=== PATIENT | male | born 1985 | race African-American/Black ===

== ENCOUNTER 2017-03-08 13:03 | Inpatient (IN) | payer OTHER ==
[2017-03-08 13:54] VITALS: BMI 30.7
[2017-03-08] MEDS ORDERED: METHADONE HCL 10 MG TABLET (FOR DETOX USE ONLY) PO ONE ×2 (16:37→23:00)
[2017-03-08] MEDS ORDERED: MAGNESIUM HYDROX 2400MG/30ML ORAL SUSPENSION 30 ML CUP PO PRN (16:37)
[2017-03-08] MEDS ORDERED: ACETAMINOPHEN 325 MG TABLET (FP) PO PRN (16:37)
[2017-03-08] MEDS ORDERED: LOPERAMIDE HCL 2 MG CAPSULE PO PRN (16:37)
[2017-03-08] MEDS ORDERED: NICOTINE POLACRILEX 4 MG GUM BC PRN (16:37)
[2017-03-08] MEDS ORDERED: MAGNESIUM CITRATE 300 ML BOTTLE PO PRN (16:37)
[2017-03-08] MEDS ORDERED: IBUPROFEN 400 MG TABLET (FP) PO PRN (16:37)
[2017-03-08] MEDS ORDERED: MAG HYDROX/AL HYDROX/SIMETH 30 ML UNIT-DOSE CUP PO PRN (16:37)
[2017-03-08] MEDS ORDERED: hydrOXYzine PAMOATE 50 MG CAPSULE (FP) PO PRN (16:37)
[2017-03-08] MEDS ORDERED: guaiFENesin/D-METHORPHAN HB 10 ML UNIT-DOSE CUPS PO PRN (16:37)
[2017-03-08] MEDS ORDERED: MENTHOL/PHENOL 1 EACH UD MM PRN (16:37)
[2017-03-08] MEDS ORDERED: P-EPHED 60MG/TRIPROLIDI 2.5MG TABLET PO PRN (16:37)
--- NOTE | 2017-03-08 16:44 | HP ---
COWS - Scale Resting Pulse: 0= [place] 80 or Below Sweatin=Flushed/Facial Moisture Restless Observation: 3= Extraneous Movement Pupil Size: 1= Pupils >than Normal Bone or Joint Aches: 2= Severe Diffuse Aches Runny Nose/ Eye Tearin= Runny Nose/Eyes GI Upset > 30mins: 3= Vomiting/Diarrhea Tremor Observation: 2= Slight Tremor Visible Yawning Observation: 2= >3x During Session Anxiety or Irritability: 2=Irritable/Anxious Goose Flesh Skin: 3=Piloerection COWS Score: 22 Admission [facility] Chief Complaint: heroin withdrawal sx Allergies/Adverse Reactions: Allergies Allergy/AdvReac Type Severity Reaction Status Date / Time No Known Allergies Allergy Verified 03/08/17 14:28 History of Present Illness: 31 yo m with h/o heroin use disorder, sniffing 3 bundles daily, last used yesterday lives in the [place], wants to stop using reporting heroin/opioid withdrawal sx, nausea, vomiting, diarrhea, chills, body aches, no h/o seziures, no DTs, denies cocaine and alochol use, smokes 1 PPD. no h/o suicide attempts no SI at this time. Never been in treatment before. no /o OD. Exam Limitations: No Limitations - Ebola screening Have you traveled outside of the country in the last 21 days: No Have you had contact with anyone from an Ebola affected area: No Have you been sick,other than usual withdrawal symptoms: No Do you have a fever: No - Review of Systems Constitutional: Chills, Diaphoresis, Loss of Appetite, Malaise, Night Sweats, Changes in sleep, Unintentional Wgt. Loss EENT: reports: Nose Congestion Respiratory: reports: No Symptoms reported Cardiac: reports: No Symptoms Reported GI: reports: Diarrhea, Nausea, Poor Appetite, Poor Fluid Intake, Vomiting, Abdominal cramping : reports: No Symptoms Reported Musculoskeletal: reports: Back Pain, Joint Pain, Muscle Pain, Neck Pain Integumentary: reports: Flushing, Sweating Neuro: reports: Headache, Tremors, Weakness Endocrine: reports: No Symptoms Reported Hematology: reports: No Symptoms Reported Psychiatric: reports: Judgement Intact, Mood/Affect Appropiate, Orientated x3, Anxious, Depressed Other Systems: Reviewed and Negative Patient History - Patient Medical History Hx Anemia: No Hx Asthma: No Hx Chronic Obstructive Pulmonary Disease (COPD): No Hx Cancer: No Hx Cardiac Disorders: No Hx Congestive Heart Failure: No Hx Hypertension: No Hx Hypercholesterolemia: No Hx Pacemaker: No HX Cerebrovascular Accident: No Hx Seizures: No Hx Dementia: No Hx Diabetes: No Hx Gastrointestinal Disorders: No Hx Liver Disease: No Hx Genitourinary Disorders: No Hx Sexually Transmitted Disorders: No Hx Renal Disease (ESRD): No Hx Thyroid Disease: No Hx Human Immunodeficiency Virus (HIV): No Hx Hepatitis C: No Hx Depression: Yes Hx Suicide Attempt: No Hx Bipolar Disorder: No Hx Schizophrenia: No Other Medical History: anxiety and insomnia - Patient Surgical History Past Surgical History: No Anesthesia Reaction: No - PPD History Previous Implant?: Yes Documented Results: Negative w/o proof Implanted On Prior [facility] Admission?: No PPD to be Administered?: Yes - Reproductive History Patient is a Female of Child Bearing Age (11 -55 yrs old): No Patient : No - Smoking Cessation Smoking history: Current every day smoker Aproximately how many cigarettes per day: 20 Hx Chewing Tobacco Use: No Initiated information on smoking cessation: Yes 'Breaking Loose' booklet given: 03/08/17 - Substance & Tx. History Hx Alcohol Use: No Hx Substance Use: Yes Substance Use Type: Heroin Hx Substance Use Treatment: No (first admission for detox) - Substances Abused Heroin Route: Inhalation Frequency: Daily Amount used: 30 bags Age of first use: 29 Date of Last Use: 03/07/17 Family Disease History - Family Disease History Family History: Denies Other Family History: aunt and uncle use heroin and alcohol Admission Physical Exam BHS - Vital Signs Vital Signs: Vital Signs - 24 hr 03/08/17 13:18 Temperature 98.1 F Pulse Rate 66 Respiratory 18 Rate Blood Pressure 160/70 - Physical General Appearance: Yes: Nourished, Appropriately Dressed, Disheveled, Mild Distress, Tremorous, Irritable, Sweating, Anxious HEENTM: Yes: EOMI, Hearing grossly Normal, Normocephalic, Normal Voice, ELLE, Pharynx Normal, Nasal Congestion, Rhinorrhea Respiratory: Yes: Within Normal Limits, Chest Non-Tender, Lungs Clear, Normal Breath Sounds, No Respiratory Distress, No Accessory Muscle Use Neck: Yes: Within Normal Limits, No masses,lesions,Nodules, Supple, Trachea in good position Breast: Yes: Breast Exam Deferred Cardiology: Yes: Within Normal Limits, Regular Rhythm, Regular Rate, S1, S2 Abdominal: Yes: Within Normal Limits, Normal Bowel Sounds, Non Tender, Flat, Soft Genitourinary: Yes: Within Normal Limits Back: Yes: Within Normal Limits Musculoskeletal: Yes: Back pain Extremities: Yes: Normal Capillary Refill, Non-Tender, Tremors Neurological: Yes: loom overhauler II-XII NML intact, Fully Oriented, Alert, Motor Strength 5/5, Normal Response, Depressed Affect Integumentary: Yes: Normal Color, Warm, Diaphoresis, Moist, Other (poor skin tugor) Lymphatic: Yes: Within Normal Limits - Addiitonal Findings: withdrawal sx and dehydration - Diagnostic (1) Nicotine dependence Status: Acute (2) Opioid dependence with withdrawal Status: Acute Cleared for Admission [facility] - Detox or Rehab [facility] Level of Care: Medically Managed Detox Regimen/Protocol: Methadone [facility] Breath Alcohol Content Breath Alcohol Content: 0 Urine Drug Screen - Results Drug Screen Negative: No Urine Drug Screen Results: YUMIKO-Cocaine, OPI-Opiates
[2017-03-08] MEDS ORDERED: NICOTINE 21 MG/24 HOURS TOPICAL PATCH TD SCH (17:00)
[2017-03-08] MEDS: diazePAM 5 MG TABLET PO PRN ×2 (17:37→22:10)
[2017-03-08 20:52] LABS: URINE APPEARANCE SLCLOUDY; URINE BILIRUBIN NEGATIVE (NEGATIVE); URINE BLOOD NEGATIVE (NEGATIVE); URINE COLOR DKYELLOW; URINE GLUCOSE (UA) NEGATIVE (NEGATIVE); URINE KETONE TRACE (NEGATIVE); URINE NITRITE NEGATIVE (NEGATIVE); URINE PROTEIN NEGATIVE (NEGATIVE); URINE UROBILINOGEN NEGATIVE mg/dL (0.2-1.0)
[2017-03-08] MEDS ORDERED: THIAMINE HCL 100 MG TABLET (FP) PO SCH (22:00)
[2017-03-09 06:25] VITALS: BP 112/64; PULSE 56; TEMP 97.5
--- NOTE | 2017-03-09 06:39 | PN ---
S Progress Note Note: patient did not want to complete treatment,stated has emergency family problem, did not want to wait,signed release ama
--- NOTE | 2017-03-09 06:42 | DS ---
[facility] Detox Discharge Summary Admission Date: 03/08/17 Discharge Date: 03/09/17 - History Present History: Opioid Dependence Additional Comments: patient did not want to complete treatment due to emergency family problem,did not want to wait,signed release ama Pertinent Past History: nicotine dependence - Physical Exam Results Vital Signs: Vital Signs Temperature 97.5 F L 03/09/17 06:24 Pulse Rate 56 L 03/09/17 06:24 Respiratory Rate 18 03/09/17 06:24 Blood Pressure 112/64 03/09/17 06:24 O2 Sat by Pulse Oximetry (%) Pertinent Admission Physical Exam Findings: withdrawal symptom - Medication Discharge Medications: Ambulatory Orders NK [No Known Home Medication] 03/08/17 - Diagnosis (1) Opioid dependence with withdrawal Current Visit: Yes Status: Acute (2) Nicotine dependence Current Visit: Yes Status: Acute - AMA Did Patient Leave Against Medical Advice: Yes
[2017-03-09] MEDS ORDERED: METHADONE HCL 10 MG TABLET (FOR DETOX USE ONLY) PO ONE (10:00)
[2017-03-09] MEDS ORDERED: PRENATAL VITAMINS W/ FOLIC ACID TABLET (FP) PO SCH (10:00)
[2017-03-09 10:41] LABS: MCH 28.9 pg (25.7-33.7); MCHC 33.4 g/dl (32.0-35.9); MEAN CELL VOLUME 86.6 fl (80-96); MEAN PLT VOLUME 9.6 fl (7.5-11.1); PLATELET COUNT 235 K/MM3 (134-434); RDW 13.6 % (11.9-15.9); WHITE BLOOD COUNT 6.4 K/mm3 (4.0-10.0)
[2017-03-09 10:54] LABS: ALBUMIN 4.2 g/dl (3.4-5.0); ANION GAP 10 (8-16); CALCIUM 10.1 mg/dL (8.5-10.1); CO2 29 mmol/L (21-32); GLUCOSE,RANDOM 89 mg/dL (74-106); SGOT/AST 12 U/L (15-37); SGPT/ALT 22 U/L (12-78)
[2017-03-09 10:59] LABS: ALK PHOS 90 U/L (45-117); BILIRUBIN,TOTAL 0.6 mg/dL (0.2-1.0); TOT PROT 7.6 g/dl (6.4-8.2)
[2017-03-09 12:32] LABS: SICKLE CELL SCREEN NEGATIVE (NEGATIVE)
[2017-03-09 14:27] LABS: HIV 1 & 2 AB NEGATIVE; HIV 1 AGp24 NEGATIVE
[2017-03-09 16:02] LABS: URINE LEUK ESTERASE Negative (NEGATIVE)
[2017-03-10] MEDS ORDERED: METHADONE HCL 5 MG TABLET (FOR DETOX USE ONLY) PO ONE (10:00)
--- NOTE | 2017-03-11 09:42 | EKG ---
Test Reason : Blood Pressure : / mmHG Vent. Rate : 071 BPM Atrial Rate : 071 BPM P-R Int : 158 ms QRS Dur : 106 ms QT Int : 416 ms P-R-T Axes : 052 061 042 degrees QTc Int : 452 ms NORMAL SINUS RHYTHM NORMAL ECG NO PREVIOUS ECGS AVAILABLE Confirmed by KASHMIR CANALES, ESTEFANI ([id number]) on 03/11/2017 9:41:51 AM Referred By: Confirmed By:ESTEFANI MARLOW MD
[2017-03-11] MEDS ORDERED: METHADONE HCL 5 MG TABLET (FOR DETOX USE ONLY) PO ONE (10:00)
[2017-03-12] MEDS ORDERED: METHADONE HCL 10 MG TABLET (FOR DETOX USE ONLY) PO ONE (10:00)
[2017-03-13] MEDS ORDERED: METHADONE HCL 5 MG TABLET (FOR DETOX USE ONLY) PO ONE (06:00)
== END 2017-03-09 06:40 | disposition left against medical advice (07) | DRG 770 ==
LOC: YASAS 13:03 → Y3N 16:00
PROVIDERS: ADMIT Internal Medicine; ATTEND Internal Medicine
PROC: HZ2ZZZZ Detoxification Services for Substance Abuse Treatment (ICD-10-PCS; principal; 2017-03-08)
DX: F11.23 Opioid dependence with withdrawal (principal); F17.210 Nicotine dependence, cigarettes, uncomplicated; F41.8 Other specified anxiety disorders; G47.00 Insomnia, unspecified
CPT/HCPCS: 36415; 80053; 81003; 85027; 85660; 86593; 87389; 93005; 93010

== ENCOUNTER 2019-12-30 11:50 | Inpatient (IN) | payer OTHER ==
--- NOTE | 2019-12-30 12:11 | BHS.RME ---
Substance Use & Tx History - Substance Use History Alcohol Substance amount: 1 pint vodka Frequency of use: Less than 3 times per week Substance route: Oral Date of Last Use: 12/28/19 Heroin Substance amount: 4 bags Frequency of use: Daily Substance route: Inhalation (ex: sniffing or snorting) Date of Last Use: 12/29/19 Marijuana/Hashish Substance amount: 1 joint Frequency of use: Daily Substance route: Smoking Date of Last Use: 12/29/19 Nicotine Substance amount: 1/2 pack Frequency of use: Daily Substance route: Smoking Date of Last Use: 12/30/19 Physical/Psych/Mental Status - Behavior General Behavior: Increased activity (restlessness, agitation) Eye Contact: Normal - Cooperativeness Cooperativeness: Cooperative - Thinking Thought Processes: Tight, Logical, Goal Directed - Physical Health Problems Is patient presently having any pain?: No Does patient presently have any injuries (include location): No Does patient currently have a fever: No Is patient : No COWS - Scale Resting Pulse: 0= [place] 80 or Below Sweatin= Chills/Flushing Restless Observation: 1= Difficult to Sit Still Pupil Size: 1= Pupils >than Normal Bone or Joint Aches: 2= Severe Diffuse Aches Runny Nose/ Eye Tearin= Runny Nose/Eyes GI Upset > 30mins: 1= Stomach Cramp Tremor Observation: 1= Tremor [place], Not Seen Yawning Observation: 0= None Anxiety or Irritability: 1=Feels Anxious/Irritable Goose Flesh Skin: 3=Piloerection COWS Score: 13 CIWA Nausea/Vomitin-No Nausea/No Vomiting Muscle Tremors: 3 Anxiety: 3 Agitation: 3 Paroxysmal Sweats: 4-Forehead w/Sweat Beads Orientation: 0-Oriented Tacttile Disturbances: 0-None Auditory Disturbances: 0-None Visual Disturbances: 0-None Headache: 0-None Present CIWA-Ar Total Score: 13
--- NOTE | 2019-12-30 13:19 | HP ---
COWS - Scale Resting Pulse: 0= [place] 80 or Below Sweatin= Chills/Flushing Restless Observation: 1= Difficult to Sit Still Pupil Size: 1= Pupils >than Normal Bone or Joint Aches: 2= Severe Diffuse Aches Runny Nose/ Eye Tearin= Runny Nose/Eyes GI Upset > 30mins: 1= Stomach Cramp Tremor Observation: 1= Tremor [place], Not Seen Yawning Observation: 0= None Anxiety or Irritability: 1=Feels Anxious/Irritable Goose Flesh Skin: 3=Piloerection COWS Score: 13 CIWA Score Nausea/Vomitin-No Nausea/No Vomiting Muscle Tremors: 3 Anxiety: 3 Agitation: 3 Paroxysmal Sweats: 4-Forehead w/Sweat Beads Orientation: 0-Oriented Tacttile Disturbances: 0-None Auditory Disturbances: 0-None Visual Disturbances: 0-None Headache: 0-None Present CIWA-Ar Total Score: 13 - Admission Criteria [facility] Guidelines: Admission for Medically Managed Detox: Requires at least one of the followin. CIWA greater than 12 2. Seizures within the past 24 hours 3. Delirium tremens within the past 24 hours 4. Hallucinations within the past 24 hours 5. Acute intervention needed for co occurring medical disorder 6. Acute intervention needed for co occurring psychiatric disorder 7. Severe withdrawal that cannot be handled at a lower level of care (continued vomiting, continued diarrhea, abnormal vital signs) requiring intravenous medication and/or fluids 8. Admitting History and Physical - Admission Chief Complaint: Mr. Lew presents to [facility] stating he is here "to get clean". He requests admission to detox for alcohol and heroin use. History of Present Illness: Mr. Lew presents to [facility] stating he is here "to get clean". He requests admission to detox for alcohol and heroin use. He was last here for a 2 day detox in 2017. PMH: eczema PSH/Psych/Legal: none SOC: homeless, with friends Substance Use History Alcohol Substance amount: 1 pint vodka Frequency of use: Less than 3 times per week Substance route: Oral Date of Last Use: 12/28/19 Began age 10 y. No deizures, no blackouts, no eyeopener Heroin Substance amount: 4 bags Frequency of use: Daily Substance route: Inhalation (ex: sniffing or snorting) Date of Last Use: 12/29/19 Began at age 29 y No OD No Narcan at home Marijuana/Hashish Substance amount: 1 joint Frequency of use: Daily Substance route: Smoking Date of Last Use: 12/29/19 Began age 9 y Nicotine Substance amount: 1/2 pack Frequency of use: Daily Substance route: Smoking Date of Last Use: 12/30/19 Began age 8 yo Ben[place]: denies Methadone: buys on street History Source: Patient Limitations to Obtaining History: No Limitations - Smoking History Smoking history: Current every day smoker Have you smoked in the past 12 months: Yes Aproximately how many cigarettes per day: 20 - Alcohol/Substance Use Hx Alcohol Use: No - Social History Usual Living Arrangement: Yes: Other (homeless, with friends) Admission [facility] Allergies/Adverse Reactions: Allergies Allergy/AdvReac Type Severity Reaction Status Date / Time No Known Allergies Allergy Verified 03/08/17 14:28 Exam Limitations: No Limitations - Ebola screening Have you traveled outside of the country in the last 21 days: No Have you been sick,other than usual withdrawal symptoms: No Do you have a fever: No - Review of Systems Constitutional: No Symptoms Reported EENT: reports: Nose Congestion Respiratory: reports: No Symptoms reported Cardiac: reports: No Symptoms Reported GI: reports: Nausea : reports: No Symptoms Reported Musculoskeletal: reports: Back Pain Integumentary: reports: No Symptoms Reported Neuro: reports: Tremors Hematology: reports: No Symptoms Reported Psychiatric: reports: Anxious Patient History - Patient Medical History Hx Anemia: No Hx Asthma: No Hx Chronic Obstructive Pulmonary Disease (COPD): No Hx Cancer: No Hx Cardiac Disorders: No Hx Congestive Heart Failure: No Hx Hypertension: No Hx Hypercholesterolemia: No Hx Pacemaker: No HX Cerebrovascular Accident: No Hx Seizures: No Hx Dementia: No Hx Diabetes: No Hx Gastrointestinal Disorders: No Hx Liver Disease: No Hx Genitourinary Disorders: No Hx Sexually Transmitted Disorders: No Hx Renal Disease (ESRD): No Hx Thyroid Disease: No Hx Human Immunodeficiency Virus (HIV): No Hx Hepatitis C: No Hx Depression: Yes Hx Suicide Attempt: No Hx Bipolar Disorder: No Hx Schizophrenia: No - Patient Surgical History Past Surgical History: No Anesthesia Reaction: No - Smoking Cessation Smoking history: Current every day smoker Aproximately how many cigarettes per day: 10 Hx Chewing Tobacco Use: No Initiated information on smoking cessation: Yes 'Breaking Loose' booklet given: 12/30/19 Admission Physical Exam [facility] - Physical General Appearance: Yes: No Apparent Distress, Nourished, Appropriately Dressed HEENTM: Yes: EOMI, Hearing grossly Normal, Normocephalic, Normal Voice Respiratory: Yes: Lungs Clear, No Respiratory Distress, No Accessory Muscle Use Neck: Yes: Within Normal Limits, Supple Breast: Yes: Breast Exam Deferred Cardiology: Yes: Regular Rhythm, Regular Rate, S1, S2 Abdominal: Yes: Normal Bowel Sounds, Non Tender, Flat, Soft Genitourinary: Yes: Other (deferred) Back: Yes: Normal Inspection Musculoskeletal: Yes: full range of Motion Extremities: Yes: Normal Inspection, Non-Tender Neurological: Yes: Alert, Normal Response Integumentary: Yes: Within Normal Limits - Diagnostic (1) Alcohol dependence with withdrawal, uncomplicated Current Visit: Yes Status: Acute (2) Cannabis abuse Current Visit: Yes Status: Acute (3) Nicotine dependence Current Visit: Yes Status: Acute Qualifiers: Nicotine product type: cigarettes Substance use status: uncomplicated Qualified Code(s): F17.210 - Nicotine dependence, cigarettes, uncomplicated (4) Opioid dependence with withdrawal Current Visit: Yes Status: Acute Cleared for Admission [facility] - Detox or Rehab [facility] Level of Care: Medically Managed Detox Regimen/Protocol: Methadone/Librium Breathalyzer - Breathalyzer Breathalyzer: 0 Urine Drug Screen - Test Device Lot number: [id number] Expiration date: 07/28/21 - Control Is test valid?: Yes - Results Drug screen NEGATIVE: No Urine drug screen results: THC-Marijuana, FEN-Fentanyl, MOP-Opiates, MTD- Methadone, BZO-Benzodiazepines Inpatient Rehab Admission - Rehab Decision to Admit Inpatient rehab admission?: No
[2019-12-30] MEDS ORDERED: MENTHOL/PHENOL 1 EACH UD MM PRN (13:20)
[2019-12-30] MEDS ORDERED: MAGNESIUM HYDROX 2400MG/30ML ORAL SUSPENSION 30 ML CUP PO PRN (13:20)
[2019-12-30] MEDS ORDERED: BISMUTH SUBSALICYLATE 524 MG/30 ML UD PO PRN (13:20)
[2019-12-30] MEDS ORDERED: NICOTINE POLACRILEX 2 MG GUM BUC PRN (13:20)
[2019-12-30] MEDS ORDERED: METHOCARBAMOL 500 MG TABLET PO PRN (13:20)
[2019-12-30] MEDS ORDERED: ONDANSETRON *ODT* 4 MG TABLET SL PRN (13:20)
[2019-12-30] MEDS ORDERED: MAGNESIUM CITRATE 300 ML BOTTLE PO PRN (13:20)
[2019-12-30] MEDS ORDERED: chlordiazePOXIDE HCL 25 MG CAPSULE PO PRN (13:20)
[2019-12-30] MEDS ORDERED: ACETAMINOPHEN 325 MG TABLET (FP) PO PRN ×2 (13:20)
[2019-12-30] MEDS ORDERED: IBUPROFEN 400 MG TABLET (FP) PO PRN (13:20)
[2019-12-30] MEDS ORDERED: MAG HYDROX/AL HYDROX/SIMETH 30 ML UNIT-DOSE CUP PO PRN (13:20)
[2019-12-30] MEDS ORDERED: METHADONE HCL 10 MG TABLET (FOR DETOX USE ONLY) PO ONE (14:00)
[2019-12-30 14:26] VITALS: BMI 28.7
[2019-12-30] MEDS: NICOTINE 14 MG/24 HOURS TOPICAL PATCH TD SCH (15:45)
[2019-12-30] MEDS: hydrOXYzine PAMOATE 25 MG CAPSULE (FP) PO SCH ×3 (15:45→22:33)
[2019-12-30 17:41] LABS: HEMATOCRIT 35.7 % (35.4-49); HEMOGLOBIN 11.8 GM/dL (11.7-16.9); MCH 29.4 pg (25.7-33.7); MCHC 33.1 g/dl (32.0-35.9); MEAN CELL VOLUME 88.8 fl (80-96); MEAN PLT VOLUME 10.5 fl (7.5-11.1); RBC 4.03 M/mm3 (4.00-5.60); RDW 12.4 % (11.9-15.9); WHITE BLOOD COUNT 4.1 K/mm3 (4.0-10.0)
[2019-12-30 17:52] LABS: ALBUMIN 3.6 g/dl (3.4-5.0); BILIRUBIN,TOTAL 0.4 mg/dL (0.2-1); BLOOD UREA NITROGEN 8.1 mg/dL (7-18); CALCIUM 8.8 mg/dL (8.5-10.1); CREATININE 0.8 mg/dL (0.55-1.3); POTASSIUM 3.6 mmol/L (3.5-5.1); TOT PROT 6.6 g/dl (6.4-8.2)
[2019-12-30 17:56] LABS: PLATELET COUNT 180 K/MM3 (134-434)
[2019-12-30] MEDS: chlordiazePOXIDE HCL 25 MG CAPSULE PO SCH ×2 (18:02→22:33)
[2019-12-30] MEDS: MELATONIN 5 MG TABLETS PO SCH (22:32)
[2019-12-30] MEDS: THIAMINE HCL 100 MG TABLET (FP) PO SCH (22:33)
[2019-12-31] MEDS: chlordiazePOXIDE HCL 25 MG CAPSULE PO SCH ×4 (06:18→22:26)
[2019-12-31] MEDS: hydrOXYzine PAMOATE 25 MG CAPSULE (FP) PO SCH ×5 (06:18→22:26)
[2019-12-31] MEDS ORDERED: METHADONE HCL 5 MG TABLET (FOR DETOX USE ONLY) ONE (09:06)
[2019-12-31] MEDS ORDERED: METHADONE HCL 10 MG TABLET (FOR DETOX USE ONLY) ONE (09:06)
[2019-12-31] MEDS ORDERED: METHADONE (DETOX) 20 MG, METHADONE (DETOX) 5 MG PO ONE (10:00)
[2019-12-31] MEDS: PRENATAL VITAMINS W/ FOLIC ACID TABLET (FP) PO SCH (10:38)
[2019-12-31] MEDS: NICOTINE 14 MG/24 HOURS TOPICAL PATCH TD SCH (10:39)
--- NOTE | 2019-12-31 12:47 | PN ---
S CIWA - CIWA Score Nausea/Vomitin-Mild Nausea/No Vomiting Muscle Tremors: 2 Anxiety: 2 Agitation: 2 Paroxysmal Sweats: 1-Minimal Palms Moist Orientation: 0-Oriented Tacttile Disturbances: 1-Very Mild Itch/Numbness Auditory Disturbances: 0-None Visual Disturbances: 0-None Headache: 2-Mild CIWA-Ar Total Score: 11 [facility] COWS - Scale Resting Pulse: 0= [place] 80 or Below Sweatin= No chills or Flushing Restless Observation: 0= Sits Still Pupil Size: 1= Pupils >than Normal Bone or Joint Aches: 2= Severe Diffuse Aches Runny Nose/ Eye Tearin= Runny Nose/Eyes GI Upset > 30mins: 2= Nausea/Diarrhea Tremor Observation of Outstretched Hands: 2= Slight Tremor Visible Yawning Observation: 1= 1-2x During Session Anxiety or Irritability: 2=Irritable/Anxious Goose Flesh Skin: 0=Smooth Skin COWS Score: 12 [facility] Progress Note (SOAP) Subjective: alert,irritable,anxious,interrupted sleep,tremor,aching pain body and back,nausea Objective: 12/31/19 12:45 Vital Signs Temperature 97.8 F 12/31/19 08:46 Pulse Rate 54 L 12/31/19 08:46 Respiratory Rate 16 12/31/19 08:46 Blood Pressure 133/79 12/31/19 08:46 O2 Sat by Pulse Oximetry (%) 99 12/31/19 06:20 Laboratory Last Values WBC 4.1 K/mm3 (4.0-10.0) 12/30/19 12:50 RBC 4.03 M/mm3 (4.00-5.60) 12/30/19 12:50 Hgb 11.8 GM/dL (11.7-16.9) 12/30/19 12:50 Hct 35.7 % (35.4-49) D 12/30/19 12:50 MCV 88.8 fl (80-96) 12/30/19 12:50 MCH 29.4 pg (25.7-33.7) 12/30/19 12:50 MCHC 33.1 g/dl (32.0-35.9) 12/30/19 12:50 RDW 12.4 % (11.9-15.9) 12/30/19 12:50 Plt Count 180 K/MM3 (134-434) D 12/30/19 12:50 MPV 10.5 fl (7.5-11.1) 12/30/19 12:50 Sodium 142 mmol/L (136-145) 12/30/19 12:50 Potassium 3.6 mmol/L (3.5-5.1) 12/30/19 12:50 Chloride 104 mmol/L (98-107) 12/30/19 12:50 Carbon Dioxide 32 mmol/L (21-32) 12/30/19 12:50 Anion Gap 7 MMOL/L (8-16) L 12/30/19 12:50 BUN 8.1 mg/dL (7-18) 12/30/19 12:50 Creatinine 0.8 mg/dL (0.55-1.3) 12/30/19 12:50 Est GFR (CKD-EPI)AfAm 134.14 12/30/19 12:50 Est GFR (CKD-EPI)NonAf 115.74 12/30/19 12:50 Random Glucose 74 mg/dL (74-106) 12/30/19 12:50 Calcium 8.8 mg/dL (8.5-10.1) 12/30/19 12:50 Total Bilirubin 0.4 mg/dL (0.2-1) 12/30/19 12:50 AST 16 U/L (15-37) 12/30/19 12:50 ALT 22 U/L (13-61) 12/30/19 12:50 Alkaline Phosphatase 73 U/L (45-117) 12/30/19 12:50 Total Protein 6.6 g/dl (6.4-8.2) 12/30/19 12:50 Albumin 3.6 g/dl (3.4-5.0) 12/30/19 12:50 Syphilis Serology Non-reactive (NONREACTIVE) 12/30/19 12:50 Assessment: 12/31/19 12:46 withdrawal symptom Plan: continue detox methadone and librium regimen,fluid
[2019-12-31] MEDS: VITAMINS A AND D TOPICAL OINTMENT 60 GM TUBE TP SCH ×2 (17:36→23:16)
[2019-12-31] MEDS: cloNIDine HCL 0.1 MG TABLET PO PRN (18:53)
[2019-12-31] MEDS: THIAMINE HCL 100 MG TABLET (FP) PO SCH (22:26)
[2019-12-31] MEDS: MELATONIN 5 MG TABLETS PO SCH (22:26)
[2020-01-01] MEDS: chlordiazePOXIDE HCL 25 MG CAPSULE PO SCH ×2 (08:14→10:17)
[2020-01-01] MEDS: hydrOXYzine PAMOATE 25 MG CAPSULE (FP) PO SCH ×3 (08:14→14:17)
[2020-01-01] MEDS: VITAMINS A AND D TOPICAL OINTMENT 60 GM TUBE TP SCH ×2 (08:15→12:17)
[2020-01-01] MEDS ORDERED: METHADONE HCL 10 MG TABLET (FOR DETOX USE ONLY) PO ONE (10:00)
[2020-01-01] MEDS: NICOTINE 14 MG/24 HOURS TOPICAL PATCH TD SCH (10:17)
[2020-01-01] MEDS: PRENATAL VITAMINS W/ FOLIC ACID TABLET (FP) PO SCH (10:17)
[2020-01-01 13:52] VITALS: BP 122/76; PULSE 49; TEMP 97.3
[2020-01-01] MEDS: cloNIDine HCL 0.1 MG TABLET PO PRN (14:14)
--- NOTE | 2020-01-01 14:59 | PN ---
[facility] CIWA - CIWA Score Nausea/Vomitin-Mild Nausea/No Vomiting Muscle Tremors: 2 Anxiety: 2 Agitation: 2 Paroxysmal Sweats: No Perspiration Orientation: 0-Oriented Tacttile Disturbances: 1-Very Mild Itch/Numbness Auditory Disturbances: 0-None Visual Disturbances: 0-None Headache: 1-Very Mild CIWA-Ar Total Score: 9 [facility] COWS - Scale Resting Pulse: 0= [place] 80 or Below Sweatin= No chills or Flushing Restless Observation: 0= Sits Still Pupil Size: 1= Pupils >than Normal Bone or Joint Aches: 2= Severe Diffuse Aches Runny Nose/ Eye Tearin= Nasal Congestion GI Upset > 30mins: 1= Stomach Cramp Tremor Observation of Outstretched Hands: 2= Slight Tremor Visible Yawning Observation: 1= 1-2x During Session Anxiety or Irritability: 2=Irritable/Anxious Goose Flesh Skin: 0=Smooth Skin COWS Score: 10 [facility] Progress Note (SOAP) Subjective: alert,irritable,anxious,interrupted sleep,tremor,nausea Objective: 01/01/20 14:46 Vital Signs Temperature 97.3 F L 01/01/20 12:40 Pulse Rate 49 L 01/01/20 12:40 Respiratory Rate 18 01/01/20 12:40 Blood Pressure 122/76 01/01/20 12:40 O2 Sat by Pulse Oximetry (%) 97 01/01/20 12:40 01/01/20 14:46 Laboratory Last Values WBC 4.1 K/mm3 (4.0-10.0) 12/30/19 12:50 RBC 4.03 M/mm3 (4.00-5.60) 12/30/19 12:50 Hgb 11.8 GM/dL (11.7-16.9) 12/30/19 12:50 Hct 35.7 % (35.4-49) D 12/30/19 12:50 MCV 88.8 fl (80-96) 12/30/19 12:50 MCH 29.4 pg (25.7-33.7) 12/30/19 12:50 MCHC 33.1 g/dl (32.0-35.9) 12/30/19 12:50 RDW 12.4 % (11.9-15.9) 12/30/19 12:50 Plt Count 180 K/MM3 (134-434) D 12/30/19 12:50 MPV 10.5 fl (7.5-11.1) 12/30/19 12:50 Sodium 142 mmol/L (136-145) 12/30/19 12:50 Potassium 3.6 mmol/L (3.5-5.1) 12/30/19 12:50 Chloride 104 mmol/L (98-107) 12/30/19 12:50 Carbon Dioxide 32 mmol/L (21-32) 12/30/19 12:50 Anion Gap 7 MMOL/L (8-16) L 12/30/19 12:50 BUN 8.1 mg/dL (7-18) 12/30/19 12:50 Creatinine 0.8 mg/dL (0.55-1.3) 12/30/19 12:50 Est GFR (CKD-EPI)AfAm 134.14 12/30/19 12:50 Est GFR (CKD-EPI)NonAf 115.74 12/30/19 12:50 Random Glucose 74 mg/dL (74-106) 12/30/19 12:50 Calcium 8.8 mg/dL (8.5-10.1) 12/30/19 12:50 Total Bilirubin 0.4 mg/dL (0.2-1) 12/30/19 12:50 AST 16 U/L (15-37) 12/30/19 12:50 ALT 22 U/L (13-61) 12/30/19 12:50 Alkaline Phosphatase 73 U/L (45-117) 12/30/19 12:50 Total Protein 6.6 g/dl (6.4-8.2) 12/30/19 12:50 Albumin 3.6 g/dl (3.4-5.0) 12/30/19 12:50 Syphilis Serology Non-reactive (NONREACTIVE) 12/30/19 12:50 COVID-19 ([facility]) Not detected (Not Detected) 12/30/19 15:00 Assessment: 01/01/20 14:59 withdrawal symptom Plan: continue detox methadone and librium regimen
--- NOTE | 2020-01-01 16:33 | DS ---
[facility] Detox Discharge Summary Admission Date: 12/30/19 Discharge Date: 01/01/20 - History Additional Comments: Patient left against medical advice. He had left prior to assessment and as per the nurse he refused to sign the AMA form Pertinent Past History: Opioid dependence Alcohol dependence Nicotine dependence Cannabis dependence - Physical Exam Results Vital Signs: Vital Signs Temperature 97.3 F L 01/01/20 12:40 Pulse Rate 49 L 01/01/20 12:40 Respiratory Rate 18 01/01/20 12:40 Blood Pressure 122/76 01/01/20 12:40 O2 Sat by Pulse Oximetry (%) 97 01/01/20 12:40 Laboratory Last Values WBC 4.1 K/mm3 (4.0-10.0) 12/30/19 12:50 RBC 4.03 M/mm3 (4.00-5.60) 12/30/19 12:50 Hgb 11.8 GM/dL (11.7-16.9) 12/30/19 12:50 Hct 35.7 % (35.4-49) D 12/30/19 12:50 MCV 88.8 fl (80-96) 12/30/19 12:50 MCH 29.4 pg (25.7-33.7) 12/30/19 12:50 MCHC 33.1 g/dl (32.0-35.9) 12/30/19 12:50 RDW 12.4 % (11.9-15.9) 12/30/19 12:50 Plt Count 180 K/MM3 (134-434) D 12/30/19 12:50 MPV 10.5 fl (7.5-11.1) 12/30/19 12:50 Sodium 142 mmol/L (136-145) 12/30/19 12:50 Potassium 3.6 mmol/L (3.5-5.1) 12/30/19 12:50 Chloride 104 mmol/L (98-107) 12/30/19 12:50 Carbon Dioxide 32 mmol/L (21-32) 12/30/19 12:50 Anion Gap 7 MMOL/L (8-16) L 12/30/19 12:50 BUN 8.1 mg/dL (7-18) 12/30/19 12:50 Creatinine 0.8 mg/dL (0.55-1.3) 12/30/19 12:50 Est GFR (CKD-EPI)AfAm 134.14 12/30/19 12:50 Est GFR (CKD-EPI)NonAf 115.74 12/30/19 12:50 Random Glucose 74 mg/dL (74-106) 12/30/19 12:50 Calcium 8.8 mg/dL (8.5-10.1) 12/30/19 12:50 Total Bilirubin 0.4 mg/dL (0.2-1) 12/30/19 12:50 AST 16 U/L (15-37) 12/30/19 12:50 ALT 22 U/L (13-61) 12/30/19 12:50 Alkaline Phosphatase 73 U/L (45-117) 12/30/19 12:50 Total Protein 6.6 g/dl (6.4-8.2) 12/30/19 12:50 Albumin 3.6 g/dl (3.4-5.0) 12/30/19 12:50 Syphilis Serology Non-reactive (NONREACTIVE) 12/30/19 12:50 COVID-19 ([facility]) Not detected (Not Detected) 12/30/19 15:00 Pertinent Admission Physical Exam Findings: Opioid withdrawal symptoms Alcohol withdrawal symptoms - Medication Discharge Medications: Ambulatory Orders NK [No Known Home Medication] 03/08/17 - Diagnosis (1) Alcohol dependence with withdrawal, uncomplicated Current Visit: Yes Status: Chronic (2) Cannabis abuse Current Visit: Yes Status: Chronic (3) Nicotine dependence Current Visit: Yes Status: Chronic Qualifiers: Nicotine product type: cigarettes Substance use status: uncomplicated Qualified Code(s): F17.210 - Nicotine dependence, cigarettes, uncomplicated (4) Opioid dependence with withdrawal Current Visit: Yes Status: Chronic - AMA Did Patient Leave Against Medical Advice: Yes
[2020-01-02] MEDS ORDERED: chlordiazePOXIDE HCL 10 MG CAPSULE PO PRN
[2020-01-02] MEDS ORDERED: chlordiazePOXIDE HCL 10 MG CAPSULE PO SCH (05:00)
[2020-01-02] MEDS ORDERED: METHADONE (DETOX) 10 MG, METHADONE (DETOX) 5 MG PO ONE (10:00)
[2020-01-03] MEDS ORDERED: chlordiazePOXIDE HCL 10 MG CAPSULE PO SCH (05:00)
[2020-01-03] MEDS ORDERED: METHADONE HCL 10 MG TABLET (FOR DETOX USE ONLY) PO ONE (10:00)
[2020-01-04] MEDS ORDERED: chlordiazePOXIDE HCL 10 MG CAPSULE PO ONE (05:00)
[2020-01-04] MEDS ORDERED: METHADONE HCL 5 MG TABLET (FOR DETOX USE ONLY) PO ONE (06:00)
== END 2020-01-01 16:20 | disposition left against medical advice (07) | DRG 770 ==
LOC: YASAS 11:50 → Y3N 14:15
PROVIDERS: ADMIT Allergy & Immunology; ATTEND Allergy & Immunology
PROC: HZ2ZZZZ Detoxification Services for Substance Abuse Treatment (ICD-10-PCS; principal; 2019-12-30)
DX: F10.230 Alcohol dependence with withdrawal, uncomplicated (principal); F11.23 Opioid dependence with withdrawal; F12.20 Cannabis dependence, uncomplicated; F17.210 Nicotine dependence, cigarettes, uncomplicated; Z59.0 Homelessness
CPT/HCPCS: 36415; 80053; 85027; 86780; J0735; U0003

== ENCOUNTER 2022-02-28 12:32 | Inpatient (IN) | payer OTHER ==
[2022-02-28 13:19] VITALS: BMI 32.1
[2022-02-28] MEDS ORDERED: NICOTINE 7 MG/24 HOURS TOPICAL PATCH TD PRN (14:35)
[2022-02-28] MEDS ORDERED: BISMUTH SUBSALICYLATE 524 MG/30 ML PO PRN (14:35)
[2022-02-28] MEDS ORDERED: DICYCLOMINE HCL 10 MG CAPSULE PO PRN (14:35)
[2022-02-28] MEDS ORDERED: MAG HYDROX/AL HYDROX/SIMETH 30 ML UNIT-DOSE CUP PO PRN (14:35)
[2022-02-28] MEDS ORDERED: MAGNESIUM CITRATE 300 ML BOTTLE PO PRN (14:35)
[2022-02-28] MEDS ORDERED: ACETAMINOPHEN 325 MG TABLET (FP) PO PRN ×2 (14:35)
[2022-02-28] MEDS ORDERED: NALOXONE HCL (KLOXXADO) 8 MG SPRAY NS PRN (14:35)
[2022-02-28] MEDS ORDERED: BENZOCAINE/MENTHOL (CHLORASEPTIC ) LOZENGE MM PRN (14:35)
[2022-02-28] MEDS ORDERED: IBUPROFEN 400 MG TABLET (FP) PO PRN (14:35)
[2022-02-28] MEDS ORDERED: ONDANSETRON *ODT* 4 MG TABLET SL PRN (14:35)
[2022-02-28] MEDS ORDERED: LOPERAMIDE HCL 2 MG CAPSULE PO PRN (14:35)
[2022-02-28] MEDS ORDERED: MAGNESIUM HYDROX 2400MG/30ML ORAL SUSPENSION 30 ML CUP PO PRN (14:35)
[2022-02-28] MEDS ORDERED: ALBUTEROL SO4 HFA INHALER IH PRN (14:39)
[2022-02-28] MEDS ORDERED: methaDONE HCL 10 MG TABLET (FOR DETOX USE ONLY) PO ONE (15:00)
[2022-02-28 17:33] LABS: HEMATOCRIT 35.9 % (35.4-49); HEMOGLOBIN 12.1 GM/dL (11.7-16.9); MCH 29.3 pg (25.7-33.7); MCHC 33.8 g/dl (32.0-35.9); MEAN CELL VOLUME 86.6 fl (80-96); MEAN PLT VOLUME 9.9 fl (7.5-11.1); PLATELET COUNT 211 10^3/uL (134-434); RBC 4.14 M/mm3 (4.00-5.60); RDW 12.6 % (11.9-15.9); WHITE BLOOD COUNT 4.5 K/mm3 (4.0-10.0)
[2022-02-28 17:43] LABS: CALCIUM 8.7 mg/dL (8.5-10.1)
[2022-02-28 17:44] LABS: ALBUMIN 3.4 g/dl (3.4-5.0); BLOOD UREA NITROGEN 6.7 mg/dL (7-18)
[2022-02-28 17:47] LABS: CREATININE 0.9 mg/dL (0.55-1.3)
[2022-02-28 17:48] LABS: BILIRUBIN,TOTAL 0.4 mg/dL (0.2-1); TOT PROT 5.9 g/dl (6.4-8.2)
[2022-02-28] MEDS ORDERED: methaDONE HCL 10 MG TABLET (FOR DETOX USE ONLY) ONE (18:37)
[2022-02-28] MEDS ORDERED: diphenhydrAMINE HCL 25 MG CAPSULE (FP) PO ONE (19:15)
[2022-02-28] MEDS: THIAMINE HCL 100 MG TABLET (FP) PO SCH (22:27)
[2022-02-28] MEDS: MELATONIN 5 MG TABLETS PO SCH (22:27)
[2022-02-28] MEDS: hydrOXYzine PAMOATE 25 MG CAPSULE (FP) PO PRN (22:28)
[2022-02-28] MEDS: HYDROCORTISONE 1% TOPICAL CREAM 30 GM TUBE TP SCH (22:39)
[2022-03-01] MEDS: PRENATAL VITAMINS W/ FOLIC ACID TABLET (FP) PO SCH (10:33)
[2022-03-01] MEDS: HYDROCORTISONE 1% TOPICAL CREAM 30 GM TUBE TP SCH ×2 (10:33→22:19)
[2022-03-01] MEDS: diazePAM 5 MG TABLET PO PRN ×2 (10:34→22:21)
[2022-03-01] MEDS: NICOTINE 10 MG CARTRIDGE (INHALER) IH PRN (20:58)
[2022-03-01] MEDS: NICOTINE POLACRILEX 2 MG GUM BUC PRN (20:59)
[2022-03-01] MEDS: MELATONIN 5 MG TABLETS PO SCH (22:19)
[2022-03-01] MEDS: hydrOXYzine PAMOATE 25 MG CAPSULE (FP) PO PRN (22:20)
[2022-03-01] MEDS: THIAMINE HCL 100 MG TABLET (FP) PO SCH (22:20)
[2022-03-01] MEDS: IBUPROFEN 600 MG TABLET (FP) PO PRN (22:21)
[2022-03-01] MEDS: cloNIDine HCL 0.1 MG TABLET PO PRN (22:24)
[2022-03-02] MEDS: IBUPROFEN 600 MG TABLET (FP) PO PRN ×2 (05:48→22:39)
[2022-03-02] MEDS ORDERED: methaDONE HCL 10 MG TABLET (FOR DETOX USE ONLY) PO ONE (10:00)
[2022-03-02] MEDS: PRENATAL VITAMINS W/ FOLIC ACID TABLET (FP) PO SCH (10:13)
[2022-03-02] MEDS: HYDROCORTISONE 1% TOPICAL CREAM 30 GM TUBE TP SCH ×2 (10:14→22:40)
[2022-03-02] MEDS: diazePAM 5 MG TABLET PO PRN (10:17)
[2022-03-02] MEDS: THIAMINE HCL 100 MG TABLET (FP) PO SCH (22:34)
[2022-03-02] MEDS: MELATONIN 5 MG TABLETS PO SCH (22:34)
[2022-03-02] MEDS: hydrOXYzine PAMOATE 25 MG CAPSULE (FP) PO PRN (22:36)
[2022-03-02] MEDS: cloNIDine HCL 0.1 MG TABLET PO PRN (22:38)
[2022-03-02] MEDS: NICOTINE 10 MG CARTRIDGE (INHALER) IH PRN (23:38)
[2022-03-02] MEDS: NICOTINE POLACRILEX 2 MG GUM BUC PRN (23:39)
[2022-03-03 09:31] VITALS: RESP 16
[2022-03-03] MEDS: PRENATAL VITAMINS W/ FOLIC ACID TABLET (FP) PO SCH (10:22)
[2022-03-03] MEDS: HYDROCORTISONE 1% TOPICAL CREAM 30 GM TUBE TP SCH (10:22)
[2022-03-03 13:20] VITALS: BP 126/64; PULSE 54; TEMP 97.8
[2022-03-04] MEDS ORDERED: methaDONE HCL 10 MG TABLET (FOR DETOX USE ONLY) PO ONE (10:00)
== END 2022-03-03 15:05 | disposition left against medical advice (07) | DRG 770 ==
LOC: YASAS 12:32 → Y3N 21:57
PROVIDERS: ADMIT Allergy & Immunology; ATTEND Surgery
PROC: HZ2ZZZZ Detoxification Services for Substance Abuse Treatment (ICD-10-PCS; principal; 2022-02-28)
DX: F11.23 Opioid dependence with withdrawal (principal); F12.10 Cannabis abuse, uncomplicated; F17.210 Nicotine dependence, cigarettes, uncomplicated; F41.9 Anxiety disorder, unspecified; F32.A Depression, unspecified; I10 Essential (primary) hypertension; J45.20 Mild intermittent asthma, uncomplicated; L30.9 Dermatitis, unspecified; Z91.013 Allergy to seafood
CPT/HCPCS: 36415; 80053; 85027; 86780; 87811; C9803-CS; U0003; U0005